=== PATIENT | male | born 1975 ===

== ENCOUNTER 2017-03-06 12:04 | Emergency (ER) | payer SELFPAY ==
[2017-03-06 12:06] VITALS: BP 131/85; PULSE 62; RESP 14; TEMP 97.6; O2SAT 100
[2017-03-06] MEDS ORDERED: TETANUS/DIPHTHERIA TOXOID ADULT 0.5 ML VIAL IM ONE (13:00)
--- NOTE | 2017-03-06 13:00 | PD ---
HPI Chief Complaint: Skin Problem Time Seen by Provider: 12:51 Travel History International Travel<30 days: No Contact w/Intl Traveler<30days: No Traveled to known affect area: No History of Present Illness HPI 41-year-old male presents to emergency department complaining of left knee pain since this morning. Patient states that he accidentally ran into a nail puncturing the superior aspect of his left knee. States that the pain has increased throughout the day and has pain with movements and has noticed swelling. States the pain is constant, moderate and achy, worse with movement. Denies fever or chills. Patient denies numbness or tingling of the extremity. Denies fever or chills. States he has not had a tetanus vaccination in over 10 years. [facility] Social History Tobacco Use: No Allergies-Medications (Allergen,Severity, Reaction): Coded Allergies: No Known Allergies (Unverified , 03/06/17) Reported Meds & Prescriptions Reported Meds & Active Scripts Active Bactrim DS (Sulfamethoxazole-Trimethoprim) 800-160 Mg Tab 1 Tab PO BID Hydrocodone-Acetaminophen 5-325 mg Tab 1 Tab PO Q6H PRN 3 Days Review of Systems Except as stated in HPI: all other systems reviewed are Neg Physical Exam Narrative GENERAL: Well-developed well-nourished in no apparent distress SKIN: Focused skin assessment warm/dry. Left knee- 3 mm puncture wound consistent with patient's history. No erythema or lymphangitic pathic spread. Wound is 3cm medial and proximal to patella. HEAD: Atraumatic. Normocephalic. EYES: Pupils equal and round. No scleral icterus. No injection or drainage. ENT: No nasal bleeding or discharge. Mucous membranes pink and moist. NECK: Trachea midline. No JVD. MUSCULOSKELETAL: No obvious deformities. No clubbing. No cyanosis. No edema. Left knee- mild edema to the joint, diffusely tender, no erythema. Patient has hesitant to perform range of motion exercises secondary to pain. NEUROLOGICAL: Awake and alert. No obvious cranial nerve deficits. Motor grossly within normal limits. Normal speech. PSYCHIATRIC: Appropriate mood and affect; insight and judgment normal. Data Data Last Documented VS Vital Signs Date Time Temp Pulse Resp B/P (MAP) Pulse Ox O2 Delivery O2 Flow Rate FiO2 03/06/17 12:06 97.6 62 14 131/85 (100) 100 Room Air Orders Orders Knee, Complete (4vws) (03/06/17 ) Tetanus/Diphtheria Tox Adult (Tetanus/Di (03/06/17 13:00) Mandatory Outpatient Referral (03/06/17 14:34) Splint Or Brace Apply/Monitor (03/06/17 14:34) Crutches (03/06/17 14:34) Sulfameth-Trimeth 400-80 Mg (Bactrim 400 (03/06/17 14:45) Ed Discharge Order (03/06/17 14:36) Immobilizer Knee 20 Inch (03/06/17 ) MDM Medical Decision Making Medical Screen Exam Complete: Yes Emergency Medical Condition: Yes Differential Diagnosis Cellulitis, septic arthritis, joint effusion, knee sprain, knee fracture Narrative Course 41-year-old male presents to emergency department complaining of left knee pain since this morning. Patient states that he accidentally ran into a door with a nail, puncturing the proximal aspect of his left knee. States that the pain has increased throughout the day and has pain with movements and has noticed swelling. States the pain is constant, moderate and achy, worse with movement. Patient denies numbness or tingling of the extremity. Denies fever or chills. States he has not had a tetanus vaccination in over 10 years. Vital signs stable. Last Impressions Knee X-Ray 03/06/17 0000 Signed Impressions: Service Date/Time: Monday, March 06, 2017 13:18 - CONCLUSION: 1. Vertical fracture through the patella. 2. Large joint effusion. 3. No metallic foreign body. Amado Almanzar MD Physical exam findings consistent with a joint effusion, TTP over patella, no erythema or lymphangiopathic spread. Puncture wound proximal to patella, not involving the patella. Because of the significant joint effusion request orthopedic opinion regarding arthrocentesis versus follow-up with orthopedic as an outpatient. I explained my findings to Dr. Juárez and he suggests knee immobilizer and follow up in his office within 1 week. I do not believe this is an open fracture. It appears that the door hit his knee, fracturing his patella and the nail punctured just above his patella. It does not appear that the nail caused this fracture based off of H&P. Pt will be Rx Bactrim DS BID x 10 days, pt placed in a knee immobilizer, and asked to follow up with orthopedics. Mandatory referral placed as he does not have insurance. Pt states understanding and will comply. Physician Communication Physician Communication I spoke with Dr. Juárez regarding my findings. He is to follow up in the office this week for further evaluation. Diagnosis Primary Impression: Patella fracture Qualified Codes: S82.025A - Nondisplaced longitudinal fracture of left patella , initial encounter for closed fracture Additional Impression: Puncture wound Referrals: Manuel Juárez MD Additional Instructions: Follow up with Dr. Juárez, orthopedic doctor within 1 week. Take ALL antibiotics as prescribed. If your knee pain worsens or persists, return to the emergency department. If you develop increased swelling, redness, or pain, return to the emergency department. Follow up with your primary care physician within 2-3 days. Scripts Sulfamethoxazole-Trimethoprim (Bactrim DS) 800-160 Mg Tab 1 TAB PO BID for Infection, #20 TAB 0 Refills Prov: Abdoulaye Wall MD 03/06/17 Hydrocodone-Acetaminophen (Hydrocodone-Acetaminophen) 5-325 mg Tab 1 TAB PO Q6H Y for PAIN for 3 Days, #12 TAB 0 Refills Prov: Abdoulaye Wall MD 03/06/17 Disposition: 01 DISCHARGE HOME Condition: Stable Lesvia Hightwoer Mar 06, 2017 13:00
--- NOTE | 2017-03-06 13:43 | RADRPT ---
EXAM DATE/TIME: 03/06/2017 13:18 [place] COMPARISON: No previous studies available for comparison. INDICATIONS : Possible Foreign Body Nail injury. Pain. MEDICAL HISTORY : None. SURGICAL HISTORY : None. ENCOUNTER: Initial ACUITY: 1 day PAIN SCORE: 8/10 LOCATION: Left knee FINDINGS: A standard 4 view examination of the left knee was obtained and demonstrates a minimally distracted v ertical fracture through the patella. There is overlying soft tissue prominence is also evidence of a joint effusion. The femur and tibia are intact. There are no radiopaque foreign bodies. CONCLUSION: 1. Vertical fracture through the patella. 2. Large joint effusion. 3. No metallic foreign body. Amado Almanzar MD on March 06, 2017 at 13:39 Board Certified Radiologist. This report was verified electronically.
[2017-03-06] MEDS ORDERED: HYDR-3516 PO (14:30)
[2017-03-06] MEDS ORDERED: BACT800T5 PO (14:30)
[2017-03-06] MEDS ORDERED: SULFAMETHOXAZOLE-TRIMETHOPRIM 400-80 MG TAB PO ONE (14:45)
== END 2017-03-06 15:00 | disposition home or self-care (01) ==
LOC: NEPK 12:04 → NEPD 15:00
DX: S82.002A Unspecified fracture of left patella, initial encounter for closed fracture (principal); M25.462 Effusion, left knee; Z23 Encounter for immunization; W22.8XXA Striking against or struck by other objects, initial encounter
CPT/HCPCS: 73564; 90471; 90714; 99284; E0113; L1830